=== PATIENT | male | born 1995 | race Caucasian/White ===

== ENCOUNTER 2018-09-29 10:29 | Emergency (ER) | payer OTHER ==
[~2018-09-29] VITALS: Ht 167.6 cm; Wt 93.0 kg
[~2018-09-29 10:29] MED LIST: HYDR-3498 PO; IBUP-1542 PO
[2018-09-29 10:30] VITALS: BP 144/87; PULSE 69; RESP 18; Ht 167.6 cm; Wt 93.0 kg
== END 2018-09-29 11:27 | disposition home or self-care (01) ==
LOC: FTE 10:29
DX: S39.012A Strain of muscle, fascia and tendon of lower back, initial encounter (principal); V43.52XA Car driver injured in collision with other type car in traffic accident, initial encounter
CPT/HCPCS: 99282